=== PATIENT | female | born 1985 | race Caucasian/White ===

== ENCOUNTER 2016-09-17 01:45 | Inpatient (IN) | payer OTHER ==
[~2016-09-17] VITALS: Ht 170.2 cm; Wt 83.9 kg
[2016-09-17] MEDS ORDERED: LACTATED RINGER'S 1000ML 1,000 ML IV SCH (02:05)
[2016-09-17] MEDS ORDERED: BETAMETH SOD PHOS/ACETATE IA 6 MG/ML IM STA (02:18)
[2016-09-17] MEDS ORDERED: AMPICILLIN IV 1 GM in SODIUM CHLOR 0.9% AD-VAN 50ML 50 ML IV SCH (02:30)
[2016-09-17] MEDS ORDERED: PRENTAB26 PO (02:38)
[2016-09-17 02:40] VITALS: Ht 170.2 cm; Wt 83.9 kg
[2016-09-17] MEDS ORDERED: ERYTHROMYCIN IV 500 MG in SODIUM CHLORIDE 0.9% 250ML 250 ML IV SCH (03:00)
--- NOTE | 2016-09-22 11:38 | DISCHARGE SUMMARY ---
Shantell is a patient who was unknown to our practice who presented to labor and delivery with PPROM at 33 weeks. She was transferred to [facility]. During her brief stay in the hospital the following happened. She presented and was assessed with sterile speculum and was found to have spontaneous rupture of membranes. Baby was in breech position. [place] was contacted and arranged for transfer. The patient did have IV antibiotics started as per protocol and IM steroids were given as well. IV was started and the patient was flown by helicopter to [facility]. The patient was not abhishek at this time. SUMMARY: Discharge summary is that the patient was briefly in our labor and delivery unit for PPROM and was transferred to [facility] without incident.
== END 2016-09-17 03:30 | disposition short-term general hospital (02) | DRG 782 ==
LOC: C.LD 01:45 → C.OPB 01:45 → C.LD 02:07 → C.OPB 02:10
PROVIDERS: ADMIT Obstetrics & Gynecology; ATTEND Obstetrics & Gynecology
DX: O42.913 Preterm premature rupture of membranes, unspecified as to length of time between rupture and onset of labor, third trimester (principal); O32.1XX0 Maternal care for breech presentation, not applicable or unspecified; Z3A.33 33 weeks gestation of pregnancy